=== PATIENT | female | born 1960 | race Caucasian/White ===

== ENCOUNTER → 2019-02-12 | Outpatient (CLI) | payer BC ==
[~2019-02-12] MED LIST: ACYC800T99 PO; AZEL137S NS; BUPR-474 PO; CEP500 PO; FAM20 PO; FLUT16SP19; IBU600 PO; LOR5 PO; PHENA200 PO; VENL150C61 PO
--- NOTE | 2019-02-13 10:45 | RADIOLOGY IMAGING REPORT ---
FACILITY: [facility] PATIENT NAME: JANUSZ DACOSTA : [id number] MR: [id number] V: [id number] EXAM DATE: [id number] ORDERING PHYSICIAN: PENG CASTORENA TECHNOLOGIST: Lynsey Shea PROCEDURE: BILATERAL DIGITAL SCREENING MAMMOGRAM WITH CAD ASSISTED INTERPRETATION & 3D TOMOSYNTHESIS REASON FOR STUDY: Screening. COMPARISON: 01/07/15. VIEWS OBTAINED: 2D & 3D full field CC & MLO projections. BREAST DENSITY: The breast parenchyma is mostly fatty replaced. MAMMOGRAM FINDINGS: There are no mammographic findings concerning for malignancy. No significant interval change. IMPRESSION: BIRADS 1: Negative. DIAGNOSTIC CATEGORY 1--NEGATIVE. RECOMMENDATIONS: ROUTINE MAMMOGRAM AND CLINICAL EVALUATION IN 1YR. Dictated by: Shahid Doyle on 02/13/2019 at 9:12 Transcribed by: ENRIQUE on 02/13/2019 at 10:39 Approved by: Shahid Doyle on 02/13/2019 at 10:41 [facility]
== END ==
LOC: MAMO 00:56
PROVIDERS: ATTEND Obstetrics & Gynecology
DX: Z12.31 Encounter for screening mammogram for malignant neoplasm of breast (principal)
CPT/HCPCS: 77063; 77067